=== PATIENT | male | born 1965 | race Hispanic/Latino ===

== ENCOUNTER 2023-05-12 06:48 | Day surgery (SDC) | payer BC, OTHER ==
[2023-05-12] VITALS (9 sets, daily range): BP systolic 124–160; BP diastolic 85–96; PULSE 74–86; RESP 12–15
[2023-05-12] MEDS ORDERED: COSYNTROPIN 0.25 MG VIAL IVP ONE (07:00)
== END 2023-05-12 09:15 | disposition home or self-care (01) ==
LOC: DAH 06:48
PROVIDERS: ATTEND Internal Medicine Endocrinology, Diabetes & Metabolism
DX: E27.9 Disorder of adrenal gland, unspecified (principal)
CPT/HCPCS: 82533 ×3; 36415; 96374; A4223 ×2; J0834; A4215; A4222; A4221; A4663; A4216; A4606

== ENCOUNTER → 2023-08-03 | Outpatient (CLI) | payer OTHER ==
[~2023-08-03] MED LIST: GADOTERATE MEGLUMINE 10 MMOL/20 ML VIAL IV ONE
== END | disposition home or self-care (01) ==
LOC: RAH 08:24
PROVIDERS: ATTEND Internal Medicine Endocrinology, Diabetes & Metabolism
DX: E23.0 Hypopituitarism (principal); E23.6 Other disorders of pituitary gland
CPT/HCPCS: 70553; A9575

== ENCOUNTER → 2024-12-19 | Outpatient (CLI) | payer OTHER ==
--- NOTE | 2024-12-19 15:41 | HMCIMG ---
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 TECHNIQUE: Routine cerebral imaging protocol was performed. Images are also obtained pre and post gadolinium contrast infusion. Additional high resolution pre and postcontrast images were obtained of the pituitary gland. CONTRAST: 20 cc Clariscan IV. FINDINGS: There is diffuse inhomogeneity artifact in the anterior inferior right frontal lobe consistent with metal object in the face. There are normal-appearing ventricles and sulci. There are no focal brain parenchymal lesions. Whole brain postcontrast images show no focal mass or abnormal contrast enhancement. Posterior fossa and brainstem structures appear unremarkable. High-resolution images were obtained of the pituitary before and after IV contrast. There is a partial empty sella syndrome. Approximately one half of the pituitary fossa is filled with CSF attenuation fluid. There are no focal pituitary masses. Infundibulum appears unremarkable. Cavernous sinuses appear normal margins are preserved. IMPRESSION: 1. Partial empty sella syndrome, no focal pituitary mass identified. 2. Inhomogeneity artifact anterior inferior frontal lobe. 3. Otherwise unremarkable exam.
== END | disposition home or self-care (01) ==
LOC: RAH 08:26
PROVIDERS: ATTEND Student in an Organized Health Care Education/Training Program
DX: E23.0 Hypopituitarism (principal)
CPT/HCPCS: 70553; A9575

== ENCOUNTER 2025-05-21 05:37 | Day surgery (SDC) | payer OTHER ==
[2025-05-21 07:49] VITALS: BP 140/84; PULSE 61; RESP 17; TEMP 97.2
--- NOTE | 2025-05-21 08:03 | NUR ---
ACTH STIM per protocol. Administered Cosyntropin as ordered at 0740
[2025-05-21] MEDS: 0.9%NACL 1000ML 1,000 ML IV SCH (08:12)
--- NOTE | 2025-05-21 08:54 | NUR ---
Full and complete discharge instructions given both verbally and in writing. VS wnl. Pt denies any issues. PIV removed with catheter tip intact. D'C'd home at this time.
== END 2025-05-21 08:56 | disposition home or self-care (01) ==
LOC: DAH 05:37
PROVIDERS: ATTEND Student in an Organized Health Care Education/Training Program
DX: E23.0 Hypopituitarism (principal)
CPT/HCPCS: 82533 ×3; 36415; 96374; A4223 ×3; J0834; A4215; A4222; A4221; A4663; A4216; A4606